=== PATIENT | female | born 1960 ===

== ENCOUNTER 2020-08-21 07:47 | Day surgery (SDC) | payer OTHER ==
[~2020-08-21 07:47] MED LIST: CARDIZEM CD240 MG PO; CARDURA XL4 MG PO; CARVEDILOL25 MG PO; COZAAR100 MG PO; CRESTOR10 MG PO; HUM; LANTUS
== END 2020-08-21 14:10 | disposition home or self-care (01) ==
LOC: CIR.AMB 07:47
PROVIDERS: ATTEND Urology
DX: N39.3 Stress incontinence (female) (male) (principal); Z20.822 Contact with and (suspected) exposure to COVID-19
CPT/HCPCS: 57288; C1771